=== PATIENT | female | born 2005 | race Caucasian/White ===

== ENCOUNTER 2025-03-02 19:59 | Outpatient (CLI) | payer SELFPAY ==
[2025-03-02 20:24] VITALS: BP 119/71; PULSE 86; TEMP 36.5
--- NOTE | 2025-03-02 21:04 | NUR.NOTE ---
Nursing Note: Pt here until 2100,on EFM for cxs and pushing po hydration. Pt felt 1-2 uterine cxs in this time. Uriel reviewed discharge instructions and follow up plan. Pt to be discharged to home undelivered.
--- NOTE | 2025-03-02 21:08 | W.OBNST ---
Date of service: 03/02/25 Time of Service: 21:09 NST Evaluation Reason for NST Reasons for Nonstress Test: LABOR Gestational Age Gestational Age in Weeks and Days: 34 Weeks and 4Days Test and Monitor Explained Test/Monitor Explained: Test Explained Vital Signs Blood Pressure: 119/71 Pulse: 86 Temperature: 36.5 C Urine Results Urine Protein: Negative Urine Ketones: Negative Urine Glucose: Negative Urine Blood: Negative NST Information Date on Monitor: 03/02/25 Time on Monitor: 19:50 NST Interventions: PO Hydration Contraction Frequency: irregular, Pt has not felt a cx yet as of this time NST Evaluation Patient States Movement: Present FHR Baseline: 135 Variability: Moderate 6-25 bpm Accelerations: 15x15 Decelerations: None NST Results: Reactive Note Ultrasound Done: N/A. NST Note Note: Pt called reporting contractions every 20 minutes for 90 minutes. Contractions were lasting 2-5 minutes per her. She had been seen in clinic earlier today, NST Cat 1, reactive, no contractions. She is feeling baby move. NST here showed 135, moderate variability, + accels, no decels. She did show some contractions on the monitor which she did not feel. These stopped before she left. NST reactive, contractions stopped. Discharged home, call if symptoms return. NST Reviewed and Verified by: Uriel Conde
[2025-03-02 21:11] VITALS: BP 119/71; PULSE 86; TEMP 36.5
== END 2025-03-02 21:16 | disposition home or self-care (01) ==
LOC: BCD 20:01 → OBS 20:01
PROVIDERS: Visit Provider Family Medicine
DX: O47.03 False labor before 37 completed weeks of gestation, third trimester (principal); Z3A.34 34 weeks gestation of pregnancy
CPT/HCPCS: 00123; 59025

== ENCOUNTER 2025-03-30 15:31 | Emergency (ER) | payer MEDICAID, SELFPAY ==
[2025-03-30] VITALS (13 sets, daily range): BP systolic 108–137; BP diastolic 78–97; PULSE 66–92; RESP 16–18; TEMP 36.9; O2SAT 96–98
--- NOTE | 2025-03-30 15:30 | RT.EKG_ITS ---
APPROVED REPORT Exam: Resting ECG Reason for Exam: htn Patient Location: E HR:78 bpm ECG Measurements Heart Rate 78 AXIS OK 151 P 23 QRSd 73 QRS 47 QT 373 T 7 QTc 426 Conclusion Sinus rhythm, rate 78 No interval abnormalities No STEMI T wave inversion III, V1, V2 No priors available for comparison
--- NOTE | 2025-03-30 16:02 | W.ED.GENAD ---
Discharge Plan Disposition Patient Disposition: Home Condition: Stable Discharge Details Clinical Impression: Martinez's palsy Primary Care Provider: CRISTINA SAUL ED Provider: Alaina Harry Home Meds and New Rx's Prescriptions: New prednisone 20 mg tablet 60 mg PO DAILY 6 Days Qty: 18 0RF Rx Instructions: start 03/31/2025 valacyclovir 1 gram tablet 1,000 mg PO TID 7 Days Qty: 21 0RF No Action PNV no.95-ferrous fumarate-FA [] 28 mg iron- 800 mcg tablet 1 tab PO DAILY Discharge Instructions Instructions: Martinez's palsy Additional Instructions: You were seen in the emergency department today for evaluation of facial drooping and alteration in taste that is concerning for Martinez's palsy. In our department you had a full physical examination performed, your fetus was evaluated and found to appear healthy and you are not in labor. I am starting you on 2 medications to treat the most common causes of Martinez's palsy. You will start taking prednisone, 60 mg/day for the next week. You received your first dose in the emergency department today. You will also start taking valacyclovir, this treats HSV or herpes simplex. This is a 3 times per day medication which we will also take for the next week. You need to purchase [id number] eyedrops or eye ointment, and use them to keep the affected eye moist. You may want to tape the eye shut during sleep if it is not closing entirely. Please contact your organ grinder tomorrow to schedule a follow-up visit in their clinic. Please follow-up with your primary care provider in the next few days to discuss this visit and any symptoms that change, worsen, or persist. Thank you for allowing us to be part of your care. Discharge Data Discharge Date/Time-TO BE ENTERED AT DEPARTURE: 03/30/25 19:33 HPI General Mode of arrival: ambulatory. Date/Time Provider Initiated Documentation: 03/30/25 15:35. Limitations to Documentation: no limitations. Information obtained by: patient, family and old records reviewed. HPI Narrative: This is a 19-year-old female patient, G1, P0 at 38 weeks gestation, previously healthy, presenting for evaluation of facial droop. The patient reports that she was getting ready for a clinic visit this morning and around 8:00 noticed that her face did not seem to be moving normally, and she was having numbness of the left tongue and liquids dribbled of the left side of her mouth. She reports no headache, injuries or trauma, states that she has not noted any tick bites. Her blood pressure was slightly higher than is typical for her, though at clinic did not meet preeclamptic range. She is not experiencing any abdominal pain, weakness or numbness of her extremities, bowel or bladder dysfunction. She has not had any vaginal bleeding or discharge, motion has been normal, is not experiencing any contractions. Related Data Home Medications ?Medication ?Instructions ?Recorded ?Confirmed prednisone 20 mg tablet 60 mg (3 x 20 mg) PO DAILY 6 days 03/30/25 #18 tabs vit no.95-ferrous 1 tab PO DAILY 03/30/25 03/30/25 fumarate 28 mg-folic acid 800 mcg tablet () valacyclovir 1 gram tablet 1,000 mg PO TID 1 week #21 tabs 03/30/25 Previous Rx's ?Medication ?Instructions ?Recorded prednisone 20 mg tablet 60 mg (3 x 20 mg) PO DAILY 6 days 03/30/25 #18 tabs valacyclovir 1 gram tablet 1,000 mg PO TID 1 week #21 tabs 03/30/25 Allergies Allergy/AdvReac Type Severity Reaction Status Date / Time No Known Allergies Allergy Verified 03/30/25 15:38 General Stated Complaint: CVA/TIA CYNDI: 2 Exam Narrative Exam Narrative: Gen: awake and alert, in no apparent distress. Appears well nourished. HEENT: PERRL, EOMs full and without nystagmus. External ears and nose normal, mucous membranes moist. Neck: Supple, full range of motion, no observable masses Lungs: No increased work of breathing CV: Heart with regular rate and rhythm. Strong and symmetrical radial pulses. Abdomen: Gravid, fundus palpable well above the umbilicus, no tenderness MSK: No joint swelling, no redness. Full ROM without limitation, no external traumatic findings. Skin: No rashes or lesions to visualized skin. Normal color, warm, and dry. Neuro: The patient has slight left-sided facial droop, with subtle weakness of the left forehead muscles compared to right. 5/5 strength in all muscle groups x4 extremities. No sensory deficits other than the left-sided tongue. Ambulates with steady gait. Psych: Appropriate for situation. Course Vital Signs Vital signs: Vital Signs Temperature 36.9 C 03/30/25 15:35 Pulse 92 H 03/30/25 15:35 Respiratory Rate 16 03/30/25 15:35 Blood Pressure 124/82 03/30/25 15:35 Pulse Oximetry 97 03/30/25 15:35 Temperature 36.9 C 03/30/25 15:35 Temperature Source Oral 03/30/25 15:35 Pulse 92 H 03/30/25 15:35 Respiratory Rate 16 03/30/25 15:35 Blood Pressure 124/82 03/30/25 15:35 Blood Pressure Position Sitting 03/30/25 15:35 Pulse Oximetry 97 03/30/25 15:35 Oxygen Delivery Method Room Air 03/30/25 15:35 Oxygen Flow Rate 0 03/30/25 15:35 Medical Decision Making This is a 19-year-old female patient presenting for evaluation of facial droop and loss of taste sensation. Differential includes but is not limited to intracranial pathology including intracranial hemorrhage, stroke, mass effect, dural venous sinus thrombosis, and considered peripheral nerve issues including Martinez's palsy, HSV, Lyme disease. Regarding the , she does not at this time meet criteria for preeclampsia with her normal blood pressure, and does not have any evidence of loss, early stages of labor, etc. I performed a bedside ultrasound which shows a fetus with appropriate heart rate and movement, and after discussion with PIPELAYER and the radiologist we have elected to proceed with MRI brain and MRV without contrast, and will obtain laboratory studies to include CBC, CMP, magnesium, Lyme testing, Rh testing, and urinalysis with protein to creatinine ratio. -I independently interpreted the laboratory studies, which show no significant leukocytosis, anemia, or thrombocytopenia. The chemistry panel is without evidence of electrolyte abnormality, kidney dysfunction, or liver injury. INR is not elevated, protein to creatinine ratio is not elevated and the patient has had blood pressures that are not above the threshold for preeclampsia concerns. O+ blood type. MRI imaging obtained, reviewed by myself and the radiology report notes no evidence of intracranial hemorrhage, mass effect, thrombosis, or other abnormalities to explain the symptoms. Given this finding, I am most concerned for Martinez's palsy and initiated the patient on valacyclovir and prednisone. She does not require admission to the hospital for management of her and had a reassuring monitoring strip performed down here in the ER. She has follow-up scheduled and will call her eye doctor tomorrow to schedule a visit to ensure that she is protecting her eye adequately, she was counseled on eye lubrication ointment and drops as well as eye taping. At this time, the patient has had a full medical evaluation and is safe for discharge to home. They are hemodynamically stable, ambulatory, and tolerating PO. They are understanding of the follow-up plan and return precautions. They left our facility without incident. Alaina Harry MD [facility] All Active Problems (Updated 03/30/25 @ 19:13 by Alaina Harry MD) Martinez's palsy (Acute) Social History Smoking/Tobacco Use Status: Never Smoking risk assessment performed?: Yes Alcohol Intake: never Drug use: Never Substance use type: does not use Do you feel safe at home: Yes Do you feel safe in your relationship?: Yes POCUS Exam (ED) Limited OB Exam DATE OF EXAM:: 03/30/25 TIME OF EXAM:: 15:52 PROVIDER THAT PERFORMED THE STUDY: Alaina Harry Type of Exam: Pelvic OB Trans Abdominal REASON FOR EXAM: other indication: Eval activity VISUALIZED STRUCTURES: Gestational sac and Uterus PERTINENT FINDINGS/IMPRESSION: cardiac activity and No apparent abnormalities Exam Complete.
[2025-03-30 16:11] LABS: Abs Immature Grans 0.12 10^3/uL (0.0-0.06); HCT 36.3 % (36.0-46.0); HGB 11.9 g/dL (11.2-15.7); Immature Grans % 1.1 %; MCH 28.7 pg (27.0-33.0); MCHC 32.8 % (32.0-36.0); MCV 88 fL (80-95); MPV 12.6 fL (8.0-11.0); Platelet Count 200 10^3/uL (130-400); RBC 4.14 10^6/uL (3.93-5.22); RDW 14.3 % (11.7-14.6); RDW-SD 44.8 fL; WBC 10.85 10^3/uL (4.4-10.8)
--- NOTE | 2025-03-30 16:15 | DI.MRI_ITS ---
Exam(s) MR ANGIO BRAIN WO EXAM: MR ANGIO BRAIN WO CLINICAL HISTORY: bells palsy. TECHNIQUE: Multiplanar multisequence MRV of the brain was performed. COMPARISON: MR MR BRAIN WO from 03/30/2025 FINDINGS: Superior sagittal sinus: Patent.Straight sinus: Patent.Sigmoid sinus: Patent. Transverse sinuses: Patent. Internal jugular veins: Patent. There is no evidence of a venous thrombus. IMPRESSION: Normal MR Venogram. DATA REPOSITORY:
--- NOTE | 2025-03-30 16:15 | DI.MRI_ITS ---
Exam(s) MR BRAIN WO EXAM: MR BRAIN WO CLINICAL HISTORY: bells TECHNIQUE: Multiplanar multisequence MRI of the brain was performed. COMPARISON: No exams were available for comparison FINDINGS: VENTRICLES AND EXTRA AXIAL SPACES: Normal in size and morphology for the patient's age. MIDLINE SHIFT: None. CEREBRAL PARENCHYMA: No focus of restricted diffusion to suggest acute infarct. No space-occupying lesion identified. HEMORRHAGE: No evidence of an acute hemorrhage. BRAINSTEM/CEREBELLUM: Normal. CALVARIUM: Normal. VISUALIZED PARANASAL SINUSES/MASTOIDS:Clear. [place]: Normal flow void. [place]: Unremarkable. OTHER FINDINGS: None. IMPRESSION: 1. Unremarkable MRI of the brain. 2. The preliminary [facility] report was reviewed. DATA REPOSITORY:
[2025-03-30 16:20] LABS: INR 1.0 (0.9-1.1); Prothrombin Time 10.1 sec (9.1-11.1)
[2025-03-30 16:29] LABS: ALT 37 U/L (14-59); AST 22 U/L (15-37); Albumin 2.5 g/dL (3.4-5.0); Alkaline Phosphatase 177 U/L (46-116); Anion Gap 10.5 mmol/L (3-11); BUN 11 mg/dL (7-18); Bilirubin, Total 0.3 mg/dL (0.2-1.0); CO2 21.5 mmol/L (21.0-32.0); Calcium 8.7 mg/dL (8.5-10.1); Chloride 106 mmol/L (98-107); Estimated GFR 126.11 (mL/min/1.73m2); Glucose 98 mg/dL (74-106); Magnesium 1.7 mg/dL (1.8-2.4); Potassium 4.1 mmol/L (3.5-5.1); Sodium 138 mmol/L (136-145); Total Protein 6.2 g/dL (6.4-8.2)
--- NOTE | 2025-03-30 18:20 | DI.[facility]AD_ITS ---
PROCEDURE INFORMATION: Exam: MR Head Without Contrast Exam date and time: 03/30/2025 5:13 PM Age: 19 years old Clinical indication: Other: [place] palsy TECHNIQUE: Imaging protocol: Magnetic resonance imaging of the head without contrast. COMPARISON: No relevant prior studies available. FINDINGS: Brain: No acute infarct. No acute intracranial hemorrhage, mass effect or midline shift. There is a focus of susceptibility artifact in the right cerebellar tentorial region, possibly secondary to remote microhemorrhage. Cerebral ventricles: Normal. No ventriculomegaly. Bones: Unremarkable. Paranasal sinuses: Normal as visualized. No acute sinusitis. Mastoid air cells: Normal as visualized. No mastoid effusion. Orbital cavities: Unremarkable. Soft tissues: Unremarkable. IMPRESSION: No acute findings. Dictated and Authenticated by: Cindy Foreman MD. Orderin [facility]. Govind Foley MD
--- NOTE | 2025-03-30 19:09 | DI.VRAD_ITS ---
PROCEDURE INFORMATION: Exam: MRA Head Without and With Contrast, Venography Exam date and time: 03/30/2025 5:31 PM Age: 19 years old Clinical indication: Other: [place] palsy TECHNIQUE: Imaging protocol: Magnetic resonance angiography of the head without and with contrast. Angiographic sequences such as Haks-zn-rezmav (TOF) or Time-resolved contrast techniques were performed. Exam focused on the veins. COMPARISON: MR BRAIN WO 03/30/2025 5:13 PM FINDINGS: Superior sagittal sinus: Patent. Straight sinus: Patent. Transverse sinuses: Patent. Sigmoid sinuses: Patent. 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 Internal jugular veins: Visualized segment patent. IMPRESSION: No venous thrombus. Dictated and Authenticated by: Desi Barahona MD. Orderin [facility]. Govind Foley MD
[2025-03-30 19:17] LABS: PROTEIN 41.6 mg/dL; Prot/Crea Ur Ratio 0.19
[2025-03-30] MEDS: predniSONE 20 MG TAB 60 MG PO (19:27)
[2025-03-30] MEDS: valACYclovir 1,000 MG TAB 1000 MG PO (19:28)
--- NOTE | 2025-03-30 22:05 | OBCE_ITS ---
Date of service: 03/30/25 Time of Service: 18:00 Assessment and Plan Assessment and plan (1) : Status: Acute Assessment and plan: 19-year-old G1, P0 at 38 4/7 as dated by 6-week ultrasound ([facility] 04/09/2025) ? Rh+/rubella immune/VZV nonimmune/GBS not available at the time of this note ? is complicated by mild persistent asthma, gluten sensitivity, varicella nonimmune, excessive weight gain in and now Martinez's palsy ? status reassuring ? Patient has no labor complaints ? No evidence of preeclampsia - - - - - - - - - - - - - 03/30/2025 ([place]): Patient was seen today in conjunction with [facility]e; they will be out of town until Wednesday of the following week. Dr. Trevino kindly did a warm introduction of myself to the patient. We discussed plan of care for moving forward including an NST with evaluation at the [facility] on Wednesday at 8:30 AM, and consideration of induction of labor next Wednesday or pending patient's condition. Labor precautions as well as preeclampsia precautions were reviewed with the patient, and she was encouraged to have a low threshold for seeking immediate medical evaluation if any concerns arise. - - - - - - - - - - - - - (2) Excessive weight gain during : Status: Acute (3) Maternal varicella, non-immune: Status: Acute (4) Asthma: Status: Chronic (5) Martinez's palsy: Status: Acute Assessment and plan: Diagnosis based on clinical features and results of imaging. See ED notes for management. History of Present Illness Narrative: This is a 19-year-old G1, P0 at 38 4/7 as dated by 6-week ultrasound ([facility] 04/09/2025). She presents to the emergency department having been sent over from her PCPs office ([facility] [place]) for concerns surrounding nausea, vomiting, increased blood pressures, and left-sided facial weakness. Patient states that she woke this morning to find the left side of her face feeling weak. She has been suffering with persistent nausea and intermittent vomiting over the last few days. Was informed by her family practitioner that, while her blood pressures remain in normal range, she has had a modest increase in her blood pressures over the last couple visits.Ms. Anderson has no known history of hypertension and is not currently on blood pressure medication. Her is complicated by mild persistent asthma, gluten sensitivity, varicella nonimmune, excessive weight gain in . She is noted to be Rh+ / Rub I / VZV NI / (GBS not available in current records). She denies leakage of fluid, bleeding, or contractions; she reports good movement. Review of Systems All systems reviewed & are unremarkable except as noted in HPI and below PFSH All Active Problems (Updated 03/30/25 @ 22:21 by Maria G Pringle DO) Asthma (Chronic) Maternal varicella, non-immune (Acute) Excessive weight gain during (Acute) (Acute) Martinez's palsy (Acute) Social History Smoking/Tobacco Use Status: Never Smoking risk assessment performed?: Yes Alcohol Intake: never Drug use: Never Substance use type: does not use Do you feel safe at home: Yes Do you feel safe in your relationship?: Yes Exam Const General: cooperative and healthy appearing Nutritional Appearance: well nourished Orientation: alert and awake HENMT Other: Noted to have left-sided chest pain above the mouth as well as eyes; able to close left eye entirely. Resp Effort & Inspection: normal respiratory effort GI Other: Gravid, nontender Skin General skin exam: no rashes or lesions noted Neuro General: patient alert and patient awake Extrem General: normal to inspection Psych Appearance: well kempt Mental Status: mental status grossly normal Affect: normal affect Results Last Vital Signs Temp 98.4 F 03/30/25 15:35 Pulse 66 03/30/25 19:32 Resp 18 03/30/25 19:32 BP 109/85 03/30/25 19:32 Pulse Ox 98 03/30/25 19:32 Labs 03/30/25 15:48 03/30/25 15:48 Labs: Laboratory Results - last 24 hr 03/30/25 03/30/25 15:48 18:45 WBC 10.85 H RBC 4.14 Hgb 11.9 Hct 36.3 MCV 88 MCH 28.7 MCHC 32.8 RDW 14.3 Plt Count 200 MPV 12.6 H Immature Gran % 1.1 Neutrophils % 78.2 Lymphocytes % 11.1 Monocytes % 8.5 Eosinophils % 0.8 Basophils % 0.3 Nucleated RBC % 0.0 Absolute Neutrophils 8.48 H Absolute Lymphocytes 1.20 Absolute Monocytes 0.92 H Absolute Eosinophils 0.09 Absolute Basophils 0.03 PT 10.1 INR 1.0 Sodium 138 Potassium 4.1 Chloride 106 Carbon Dioxide 21.5 Anion Gap 10.5 BUN 11 Creatinine 0.7 Est GFR (CKD-EPI 2020) 126.11 Glucose 98 Calcium 8.7 Magnesium 1.7 L Total Bilirubin 0.3 AST 22 ALT 37 Alkaline Phosphatase 177 H Total Protein 6.2 L Albumin 2.5 L Ur Random Creatinine 211.92 U Random Total Protein 41.6 U [place] Prot/Creat Ratio 0.19 ABO/Rh O Positive Imaging Additional studies: Brain MRI and MRA find no evidence of tissue defects or vascular concerns Imaging Studies: FHT: Category 1 [place]: Rare and intermittent; uterine irritability
[2025-04-02 11:31] LABS: Lyme Ab w Rflx to Lyme Confirm Negative (Negative)
[2025-04-04 21:50] LABS: B. miyamotoi PCR Negative (Negative); Babesia divergens/MO-1 Negative (Negative); Ehrlichia muris eauclairensis Negative (Negative)
== END 2025-03-30 19:33 | disposition home or self-care (01) ==
PROVIDERS: Obstetrics & Gynecology; Emergency Provider Emergency Medicine; PCP Nurse Practitioner Family
DX: O99.353 Diseases of the nervous system complicating pregnancy, third trimester; G51.0 Bell's palsy; Z3A.38 38 weeks gestation of pregnancy
CPT/HCPCS: 70544; 76815; 80053; 86900; 86901; 87798; 93005; 99285; 70551; 82565; 83735; 84156; 85025; 85610; 86618; 93010; J7512

== ENCOUNTER 2025-03-31 10:00 | Outpatient (CLI) | payer MEDICAID, SELFPAY ==
[2025-03-31 10:45] VITALS: BP 124/69; PULSE 68; TEMP 36.8
[2025-03-31 10:50] VITALS: BP 124/69; PULSE 68
[2025-03-31 11:08] LABS: Abs Immature Grans 0.22 10^3/uL (0.0-0.06); HCT 37.4 % (36.0-46.0); HGB 12.1 g/dL (11.2-15.7); Immature Grans % 1.4 %; MCH 28.9 pg (27.0-33.0); MCHC 32.4 % (32.0-36.0); MCV 89 fL (80-95); MPV 12.3 fL (8.0-11.0); Platelet Count 210 10^3/uL (130-400); RBC 4.19 10^6/uL (3.93-5.22); RDW 14.3 % (11.7-14.6); RDW-SD 45.4 fL; WBC 15.18 10^3/uL (4.4-10.8)
[2025-03-31 11:22] LABS: ALT 43 U/L (14-59); AST 22 U/L (15-37); Albumin 2.4 g/dL (3.4-5.0); Alkaline Phosphatase 175 U/L (46-116); Anion Gap 13.0 mmol/L (3-11); BUN 14 mg/dL (7-18); Bilirubin, Total 0.3 mg/dL (0.2-1.0); CO2 21.0 mmol/L (21.0-32.0); Calcium 9.3 mg/dL (8.5-10.1); Chloride 106 mmol/L (98-107); Estimated GFR 107.44 (mL/min/1.73m2); Glucose 112 mg/dL (74-106); Potassium 4.0 mmol/L (3.5-5.1); Sodium 140 mmol/L (136-145); Total Protein 6.0 g/dL (6.4-8.2)
[2025-03-31 11:33] VITALS: BP 124/64; PULSE 64
[2025-03-31 11:40] VITALS: BP 124/64; PULSE 64
[2025-03-31 12:13] LABS: PROTEIN 90.4 mg/dL; Prot/Crea Ur Ratio 0.23
--- NOTE | 2025-03-31 13:06 | W.OBNST ---
Date of service: 03/31/25 Time of Service: 13:06 NST Evaluation Reason for NST Reasons for Nonstress Test: OTHER, SEE COMMENT Reason for NST Other: Concerns for possible elevated blood pressure Gestational Age Gestational Age in Weeks and Days: 38 Weeks and 5Days Test and Monitor Explained Test/Monitor Explained: Test Explained, Monitor Explained and Patient Verbalized Understanding Vital Signs Blood Pressure: 124/64 Pulse: 64 Temperature: 98.2 F NST Information Date on Monitor: 03/31/25 Time on Monitor: 10:47 Date off Monitor: 03/31/25 NST Interventions: PO Hydration Contraction Frequency: 1-6 NST Evaluation Patient States Movement: Present FHR Baseline: 135 Variability: Moderate 6-25 bpm Accelerations: 15x15 NST Results: Reactive Note Ultrasound Done: N/A. NST Note Note: reactive and reassuring NST Reviewed and Verified by: Maria G Pringle
[2025-03-31 13:07] VITALS: BP 124/64; PULSE 64; TEMP 36.8
--- NOTE | 2025-03-31 13:07 | PGE_ITS ---
Date of Service Date of service: 03/31/25 Time of Service: 13:07 Assessment and Plan Assessment and plan (1) : Status: Acute Assessment and plan: 19-year-old at 38 and 5 is dated by 6-week ultrasound ([facility] 04/09/2025) ? Rh+ / Rub I / VZV NI / GBS unknown (collected, but info not available at the time of note) ? complicated by mild persistent asthma, gluten sensitivity, varicella nonimmune, excessive weight gain in , Martinez's palsy ? status reassuring - - - - - - - - - - - - - - - - - - 03/30/2025 ([place]): ED visit for assessment of blood pressures and diagnosis of Martinez's Palsy. Patient was seen today in conjunction with [facility]; they will be out of town until Wednesday of the following week. Dr. Trevino kindly did a warm introduction of myself to the patient. We discussed plan of care for moving forward including an NST with evaluation at the [facility] clinic on Wednesday at 8:30 AM, and consideration of induction of labor next Wednesday or pending patient's condition. Labor precautions as well as preeclampsia precautions were reviewed with the patient, and she was encouraged to have a low threshold for seeking immediate medical evaluation if any concerns arise. 03/31/2025 ([place]): Patient presents for concerns surrounding possibly elevated blood pressures at home (130s over 80s to 90s). Assessment, today, is stable from prior. Labs are still within normal range and stable from the day before. status is reassuring and overall clinical presentation is sukhdeep ropriate for gestational age; I do not detect evidence of preeclampsia. Serial blood pressures here are within normal range, and cuff is noted to be appropriately sized. Patient has an appointment with [facility] scheduled for 8:30 AM on Wednesday. We once again reviewed labor and preeclampsia precautions, and she was encouraged to have a low threshold for seeking immediate medical evaluation if symptoms worsen or progress. SVE, today, is 1/thick/high/medium/posterior; cephalic. Membranes were swept. Assuming clinical status remains stable, plan is for assessment on Wednesday and, assuming reassuring evaluation at that time, induction of labor with [facility] [place] to be scheduled for Wednesday or . - - - - - - - - - - - - - Subjective Subjective Interval history since last seen: 19-year-old at 38 and 5 is dated by 6-week ultrasound ([facility] 04/09/2025) called this morning with concerns surrounding possibly elevated blood pressures at home. Patient reported blood pressures in the 130s over 80s to 90s; she was encouraged to come to triage for evaluation. On presentation to triage, she is accompanied by her mother. Ms. Anderson appears stable from yesterday. Blood pressures are noted to be ranging in the 120s over 60s to 70s. Her symptoms are unchanged from baseline (persistent nausea; no other signs or symptoms of preeclampsia). Patient reports intermittent contractions, and reports good movement. She denies any bleeding or leakage. Exam Narrative Exam Narrative: General: Well-nourished female in no immediate distress HEENT: Modest left-sided facial droop, improved from prior Pulm: No overt respiratory distress Abdomen: Gravid, nontender Extremities: +1, nonpitting edema noted equally bilaterally Psych: Appropriate, cooperative : 1/thick/high/medium/posterior; cephalic. Membranes swept. FHT: Reactive and reassuring; category 1 [place]: Irregular Objective Last Vital Signs Pulse 64 03/31/25 11:33 BP 124/64 03/31/25 11:33 Laboratory Results - last 24 hr 03/31/25 03/31/25 03/31/25 10:05 10:45 10:57 WBC Cancelled 15.18 H RBC Cancelled 4.19 Hgb Cancelled 12.1 Hct Cancelled 37.4 MCV Cancelled 89 MCH Cancelled 28.9 MCHC Cancelled 32.4 RDW Cancelled 14.3 Plt Count Cancelled 210 MPV Cancelled 12.3 H Immature Gran % 1.4 Neutrophils % 81.7 Lymphocytes % 9.6 Monocytes % 6.8 Eosinophils % 0.2 Basophils % 0.3 Nucleated RBC % 0.0 Absolute Neutrophils 12.40 H Absolute Lymphocytes 1.46 Absolute Monocytes 1.03 H Absolute Eosinophils 0.03 Absolute Basophils 0.05 Sodium 140 Potassium 4.0 Chloride 106 Carbon Dioxide 21.0 Anion Gap 13.0 H BUN 14 Creatinine 0.8 Est GFR (CKD-EPI 2020) 107.44 Glucose 112 H Calcium 9.3 Total Bilirubin 0.3 AST 22 ALT 43 Alkaline Phosphatase 175 H Total Protein 6.0 L Albumin 2.4 L Ur Random Creatinine 389.56 U Random Total Protein 90.4 U [place] Prot/Creat Ratio 0.23 Time Spent with Patient Time Spent with Patient: 35-49 minutes Time was spent: preparing to see the patient(eg.review tests), obtaining and/or reviewing separately otained hiistory, ordering medications,tests, procedures, referring, communicating with other health lead care manager, indepentently interpreting results, counseling the patient and care coordination
== END 2025-03-31 13:05 ==
LOC: BCD 10:04 → OBS 10:05
PROVIDERS: PCP Nurse Practitioner Family; Visit Provider Obstetrics & Gynecology
DX: Z34.93 Encounter for supervision of normal pregnancy, unspecified, third trimester (principal); Z3A.38 38 weeks gestation of pregnancy
CPT/HCPCS: 36415; 80053; 85027; 59025; 82565; 84156; 85025

== ENCOUNTER 2025-04-01 09:19 | Inpatient (IN) | payer MEDICAID, SELFPAY ==
[2025-03-31 23:08] VITALS: BP 121/56; PULSE 55; RESP 18; TEMP 36.8
[2025-03-31 23:11] VITALS: BP 122/62; BP 122/64; PULSE 54; PULSE 74; RESP 18; TEMP 36.8
--- NOTE | 2025-03-31 23:26 | W.PM.OBHPL1 ---
Date of service: 03/31/25 Time of Service: 23:26 Assessment and Plan Assessment and plan (1) Martinez's palsy: Status: Acute (2) Maternal varicella, non-immune: Status: Acute (3) Excessive weight gain during : Status: Acute (4) : Status: Acute Assessment and plan: 19-year-old at 38 and 5 is dated by 6-week ultrasound ([facility] 04/09/2025) ? Rh+ / Rub I / VZV NI / GBS negative (as of 03/13) ? complicated by mild persistent asthma, gluten sensitivity, varicella nonimmune, excessive weight gain in , Martinez's palsy ? status reassuring - - - - - - - - - - - - - - - - - - 03/30/2025 ([place]): ED visit for assessment of blood pressures and diagnosis of Martinez's Palsy. Patient was seen today in conjunction with Nur[facility] Agee; they will be out of town until Wednesday of the following week. Dr. Trevino kindly did a warm introduction of myself to the patient. We discussed plan of care for moving forward including an NST with evaluation at the [facility] on Wednesday at 8:30 AM, and consideration of induction of labor next Wednesday or pending patient's condition. Labor precautions as well as preeclampsia precautions were reviewed with the patient, and she was encouraged to have a low threshold for seeking immediate medical evaluation if any concerns arise. 03/31/2025 ([place]): Patient presents for concerns surrounding possibly elevated blood pressures at home (130s over 80s to 90s). Assessment, today, is stable from prior. Labs are still within normal range and stable from the day before. status is reassuring and overall clinical presentation is appropriate for gestational age; I do not detect evidence of preeclampsia. Serial blood pressures here are within normal range, and cuff is noted to be appropriately sized. Patient has an appointment with Nurys Agee scheduled for 8:30 AM on Wednesday. We once again reviewed labor and preeclampsia precautions, and she was encouraged to have a low threshold for seeking immediate medical evaluation if symptoms worsen or progress. SVE, today, is 1/thick/high/medium/posterior; cephalic. Membranes were swept. Assuming clinical status remains stable, plan is for assessment on Wednesday and, assuming reassuring evaluation at that time, induction of labor with Nurys Agee to be scheduled for Wednesday or . 03/31/2025 ([place]uroophelia): Patient returned for additional evaluation citing elevated blood pressures at home. She brings a blood pressure log with her with the above mentioned values; she is noted to have a few elevations. Her mother has been taking the blood pressures manually and she is medically trained (SUSIE). Patient also reports a persistent headache over the course of the day; albeit, she has not tried anything for it, yet, and she denies any other associated symptoms with it (no visual changes, light headedness, etc). We discussed repeating her labs and monitoring her overnight. We will do serial blood pressures and confirm with manual readings as well. Ms. Anderson will be 39 0/7 in 2 days; we will have a low threshold for proceeding with IOL, especially this being her third visit in two days as she has an elevated sense of concern. Ms. Anderson is also noted to have had a modestly elevated white count this morning and her baby's baseline is somewhat high (160, overall reassuring); however, she initiated a steroid yesterday for her Martinez's Palsy. We will do continuous FHT monitoring for now and watch closely for any concerns for infection. - - - - - - - - - - - - - OB-HPI Labor/Delivery History of Present Illness Reason for Visit: headache Chief Complaint: Signs/Symptoms Gestational HTN , Associated Signs and Symptoms of GestationalHTN: Elevated blood pressures noted at home. Informed Consent Informed Consent: Risk,Benefits,Alternatives Discussed Review of Systems All systems reviewed & are unremarkable except as noted in HPI and below PFSH All Active Problems (Updated 03/30/25 @ 22:21 by Maria G Pringle DO) Asthma (Chronic) Maternal varicella, non-immune (Acute) Excessive weight gain during (Acute) (Acute) Martinez's palsy (Acute) Social History Smoking/Tobacco Use Status: Never Smoking risk assessment performed?: Yes Alcohol Intake: never Drug use: Never Substance use type: does not use Do you feel safe at home: Yes Do you feel safe in your relationship?: Yes Meds Allergies and Home Medications Allergies Allergy/AdvReac Type Severity Reaction Status Date / Time No Known Allergies Allergy Verified 03/30/25 15:38 Home Medications ?Medication ?Instructions ?Recorded ?Confirmed ?Type prednisone 20 mg tablet 60 mg (3 x 20 mg) PO DAILY 6 days 03/30/25 Rx #18 tabs vit no.95-ferrous 1 tab PO DAILY 03/30/25 03/30/25 History fumarate 28 mg-folic acid 800 mcg tablet () valacyclovir 1 gram tablet 1,000 mg PO TID 1 week #21 tabs 03/30/25 Rx Exam Physical Exam Vital signs: Pulse BP 54 L 122/62 03/31/25 23:11 03/31/25 23:11 HOME MONITORIN: 130 / 78 1715: 138 / 90 1900: 130 / 96 2000: 132 / 92 2100: 140 / 100 Constitutional Constitutional: no acute distress Detailed Labor and Delivery Exam Valenzuela Score: Cervical Points Exam 0 1 2 3 Dilation Closed 1-2cm 3-4 cm 5-6cm Effacement 0-30% 40-50% 60-70% 80% Consistency Firm Medium Soft Station -3 -2 -1,0 +1,+2 Position Posterior Mid Anterior VALENZUELA Score(Cervical Ripeness Score): 3 Amniotic Membrane Status: Intact Contraction Frequency(min): irregular Fetus A Heart Rate Baseline: 160 Monitor Accelerations: Present (Some prolonged) Monitor Decelerations: None Variability: Moderate (6-25 BPM) Presentation: Cephalic Categories: Category I Est. Weight: 7 lb 8 oz Detailed HEENT Exam Comments: Modestly swollen appearance throughout her face. Still has modest left-sided facial droop, though improved from yesterday. Detailed Respiratory Exam Comments: CTAB; no evidence of respiratory distress Detail Cardiovascular Exam Comments: RRR; no overt mumurs or arrhythmias Detailed Abdominal Exam Comments: Gravid, non-tender. No palpable contractions. No RUQ tenderness Detailed Exam Comments: Declines exam Detailed Extremities Exam Comments: +1 non-pitting edema noted equally bilaterally. Patella and Brachial reflexes are appropriate at 2+/4 without clonus DetailedPsychiatric Exam Comments: Appropriate and congruent mood and affect; cooperative Results Results Group Beta Strep: Negative (03/13/25) Blood Type: O+ Rubella Status: Immune Varicella Immunity: Nonimmune Risk Assessment Risks Reviewed Risks Reviewed Upon Admission: Yes
[2025-03-31 23:49] LABS: ALT 42 U/L (14-59); AST 21 U/L (15-37); Albumin 2.4 g/dL (3.4-5.0); Alkaline Phosphatase 167 U/L (46-116); Anion Gap 9.6 mmol/L (3-11); BUN 14 mg/dL (7-18); Bilirubin, Total 0.2 mg/dL (0.2-1.0); CO2 21.4 mmol/L (21.0-32.0); Calcium 9.4 mg/dL (8.5-10.1); Chloride 109 mmol/L (98-107); Estimated GFR 130.88 (mL/min/1.73m2); Glucose 100 mg/dL (74-106); Potassium 4.0 mmol/L (3.5-5.1); Sodium 140 mmol/L (136-145); Total Protein 5.8 g/dL (6.4-8.2)
[2025-04-01] VITALS (10 sets, daily range): BP systolic 112–138; BP diastolic 56–77; PULSE 55–88; RESP 18–22; TEMP 35.8–37
[2025-04-01 00:23] LABS: PROTEIN 14.8 mg/dL; Prot/Crea Ur Ratio 0.82
[2025-04-01 00:25] LABS: HCT 34.4 % (36.0-46.0); HGB 11.2 g/dL (11.2-15.7); MCH 29.2 pg (27.0-33.0); MCHC 32.6 % (32.0-36.0); MCV 90 fL (80-95); MPV 12.7 fL (8.0-11.0); Platelet Count 188 10^3/uL (130-400); RBC 3.84 10^6/uL (3.93-5.22); RDW 14.4 % (11.7-14.6); RDW-SD 46.2 fL; WBC 13.95 10^3/uL (4.4-10.8)
[2025-04-01] MEDS: Acetaminophen 325 MG TAB 650 MG PO (08:29)
[2025-04-01] MEDS: Prenatal Multivitamin w/CA,FE TAB 1 TAB PO (08:30)
[2025-04-01] MEDS: valACYclovir 1,000 MG TAB 1000 MG PO ×2 (08:30→18:00)
[2025-04-01] MEDS: predniSONE 20 MG TAB 60 MG PO (08:30)
--- NOTE | 2025-04-01 08:42 | PGE_ITS ---
Date of Service Date of service: 04/01/25 Time of Service: 08:42 Assessment and Plan Assessment and plan (1) : Status: Acute Assessment and plan: 19-year-old at 38 6/7 as dated by 6-wk US ([facility] 04/09/2025) ? Rh+ / Rub I / VZV NI / GBS negative (as of 03/13) ? complicated by mild persistent asthma, gluten sensitivity, varicella nonimmune, excessive weight gain in , Martinez's palsy, and now proteinuria ? To be offered VZV vaccine following delivery ? Will continue 60 mg PO Prednisone daily x 6 days (03/30 thru 04/04) and 1000 mg PO Valtrex TID x 7 days for Martinez's Palsy - - - - - - - - - - - - - - 04/01/2025 ([place]): Patient is joined by the father of the baby this morning. We had a long discussion regarding management moving forward. Patient is noted to be 39 weeks as of tomorrow. She expresses notable concern over the increase in her blood pressures from baseline. She notes the intermittent headaches and nausea that have developed over the last week and endorses a corresponding decrease in movement over the same time period. She is noted to have a pronounced development of proteinuria over the course of her urine protein creatinine's since the and relative to the start of her , her ALT and AST are modestly increased. The baby's status is overall reassuring but has not been without remarkable moments as noted above. We had a long discussion regarding induction of labor and how this process can take multiple days. Though she is 38 weeks and 6 days as of today, she will be 39 weeks tomorrow, and well her symptoms in isolation do not warrant a specific diagnosis for induction, the collection of them together creates enough suspicion for a developing underlying pathology but I feel induction today is reasonable. Patient verbalizes understanding of all the above and expresses notable interest in pursuing an induction. She understands that her regular providers are not currently available, and that this induction would be undertaken by our group on behalf of her normal providers. We will plan for a Cytotec induction following breakfast for suspicion of gestational hypertension vs pre-eclampsia without severe features (based on home blood pressure monitoring and delta change in systolic blood pressure from the beginning of her pregnancyin the setting of newfound proteinuria) and decreased movement. Routine induction orders placed; patient to continue her oral steroid and Valacyclovir for her Martinez's palsy. Of note, the patient and I did discuss dual- agent induction (such as cytotec with a cervical turner vs cook catheter); for now, we will work with vaginal and/or PO cytotec. - - - - - - - - - - - - - - (2) Excessive weight gain during : Status: Acute Assessment and plan: - TWG 57.3 lbs - 28 wk 1hr OGTT 114 - No third trimester US available; EFW approximately 7.5 lbs on Sly's - Shoulder precautions (3) Maternal varicella, non-immune: Status: Acute Assessment and plan: To be offered varicella vaccine following delivery (4) Martinez's palsy: Status: Acute Assessment and plan: - Diagnosed 03/30; MRI and MRA w/o contrast do not find evidence of intracranial pathology - 60 mg Prednisone daily x 6 days; to be continued thru 04/04 - 1000 mg Valtrex TID x 7 days; to be continued thru 04/05 (5) Proteinuria: Status: Acute Assessment and plan: - Uprot/Cr: (03/30) 0.19, (03/31 AM) 0.28, (03/31 PM) 0.82 - Cr: (03/30) 0.7, (03/31 AM) 0.8, (03/31 PM) 0.6 - Newfound proteinuria based on elevated protein:creatinine ratio since 03/30. Creatinine has remained stable (6) Asthma: Status: Chronic Assessment and plan: - Well controlled on Breo 100-25 1 puff BID; ordered Subjective Subjective Interval history since last seen: 19-year-old at 38 6/7 as dated by 6-week ultrasound (JOSE FRANCISCO: 04/09/2025) Hospital day 1 for extended monitoring of blood pressures; patient reports blood pressures have been notably elevated at home. She has been wrestling with intermittent nausea as well as headaches in the last week. Today, she reports that her headache from last night had improved with Tylenol but is back this morning. She denies any visual changes. She denies any current nausea. She is not resting in bed and in good spirits. This morning, Ms. Anderson states that the baby's movements have not been as prominent as usual in the last week. She denies any history of chronic hypertension, and reiterates that her blood pressures are elevated from baseline from her. A review of her records does show that her systolic blood pressures at the beginning of her were running in the 100's, and overnight they were fairly consistently in the 120s to 130s. Exam Narrative Exam Narrative: General: Well-nourished female in no immediate distress HEENT: Very mild left-sided facial droop much improved from prior (likely thanks to steroids) Pulmonary: No respiratory distress Abdomen: Gravid, nontender Extremities: +1, nonpitting edema noted equally bilaterally : SVE 1/thick/high/medium/posterior; membranes swept. Cephalic presentation. FHT: Overall reactive and reassuring; last night, baby initially presented borderline tachycardic with arguably moderate to marked variability, which settled over time. She was also noted to have a subtle deceleration at 0812 this morning; however, the heart tones are otherwise category 1 and very reassuring. [place]: Irregular fluctuations suggestive of uterine irritability; patient reports that she is feeling some of the contractions though they are mild Objective Last Vital Signs Temp 97.2 F L 04/01/25 08:07 Pulse 60 04/01/25 08:07 Resp 22 04/01/25 08:07 BP 128/69 04/01/25 08:07 Laboratory Results - last 24 hr 03/31/25 04/01/25 23:23 00:04 WBC 13.95 H RBC 3.84 L Hgb 11.2 Hct 34.4 L MCV 90 MCH 29.2 MCHC 32.6 RDW 14.4 Plt Count 188 MPV 12.7 H Sodium 140 Potassium 4.0 Chloride 109 H Carbon Dioxide 21.4 Anion Gap 9.6 BUN 14 Creatinine 0.6 Est GFR (CKD-EPI 2020) 130.88 Glucose 100 Calcium 9.4 Total Bilirubin 0.2 AST 21 ALT 42 Alkaline Phosphatase 167 H Total Protein 5.8 L Albumin 2.4 L Ur Random Creatinine 17.87 U Random Total Protein 14.8 U [place] Prot/Creat Ratio 0.82 ABO/Rh O Positive Antibody Screen NEGATIVE WBC: (03/30) 10.85, (03/31 AM) 15.18, (03/31 PM) 13.95 Hgb: (03/30) 11.9, (03/31) 12.1, (03/31 PM) 11.2 Plts: (03/30) 200, (03/31) 210, (03/31) 188 Cr: (03/30) 0.7, (03/31 AM) 0.8, (03/31 PM) 0.6 AST: (03/30) 22, (03/31) 22, (03/31) 21 ALT: (03/30) 37, (03/31) 43, (03/31) 42 Uprot/Cr: (03/30) 0.19, (03/31) 0.28, (03/31 PM) 0.82 Time Spent with Patient Time Spent with Patient: 25-34 minutes Time was spent: preparing to see the patient(eg.review tests), obtaining and/or reviewing separately otained hiistory, ordering medications,tests, procedures, indepentently interpreting results, counseling the patient and care coordination
[2025-04-01] MEDS: miSOPROStol 25 MCG TAB PO (09:58)
--- NOTE | 2025-04-01 16:30 | PGE_ITS ---
Date of Service Date of service: 04/01/25 Time of Service: 16:31 Assessment and Plan Assessment and plan (1) : Status: Acute Assessment and plan: 19 yo at 38 6/7 as dated by 6 wk US undergoing IOL for suspected gHTN ? Rh+ / Rub I / VZV NI / GBS negative (as of 03/13) ? complicated by mild persistent asthma, gluten sensitivity, varicella nonimmune, excessive weight gain in , Martinez's palsy, and now proteinuria, elevated BP's from patient's baseline (but still WNL) ? status reassuring ? Pain management via nitrous and ambulation for now ? Has received one dose of 25 mcg of vaginal cytotec ? Cook catheter (30 cc's sterile saline in each balloon) placed 04/01 at 1630. Anticipate initiating Pitocin to a max of 6 mU's starting at 1930. Titrate up once Cook catheter comes out (2) Excessive weight gain during : Status: Acute (3) Maternal varicella, non-immune: Status: Acute (4) Proteinuria: Status: Acute Subjective Subjective Interval history since last seen: 19 yo at 38 6/7 as dated by 6 wk US undergoing IOL for suspected gHTN. Membranes intact. and status is reassuring. She has received 1 dose of 25 mcg of vaginal cytotec which did induce some uterine irritability; she has since been deena too much for a subsequent dose. Patient was counsled on the risks and benefits of placement of a Cook catheter, and she wishes to proceed. Exam Narrative Exam Narrative: general: well-nourished female; comfortable HEENT: Stable pulm: no overt resp distress abd: gravid, non-tender Ext: +1 edema noted equally bilaterally SVE: 1/th/high/-3/medium/posterior; cephalic FHT: Cat 1 [place]: q1-2; patient reports feeling them intermittently Objective Last Vital Signs Temp 97.2 F L 04/01/25 08:07 Pulse 81 04/01/25 16:05 Resp 22 04/01/25 08:07 BP 138/64 04/01/25 16:05 Laboratory Results - last 24 hr 03/31/25 04/01/25 23:23 00:04 WBC 13.95 H RBC 3.84 L Hgb 11.2 Hct 34.4 L MCV 90 MCH 29.2 MCHC 32.6 RDW 14.4 Plt Count 188 MPV 12.7 H Sodium 140 Potassium 4.0 Chloride 109 H Carbon Dioxide 21.4 Anion Gap 9.6 BUN 14 Creatinine 0.6 Est GFR (CKD-EPI 2020) 130.88 Glucose 100 Calcium 9.4 Total Bilirubin 0.2 AST 21 ALT 42 Alkaline Phosphatase 167 H Total Protein 5.8 L Albumin 2.4 L Ur Random Creatinine 17.87 U Random Total Protein 14.8 U [place] Prot/Creat Ratio 0.82 ABO/Rh O Positive Antibody Screen NEGATIVE Time Spent with Patient Time Spent with Patient: 35-49 minutes Time was spent: preparing to see the patient(eg.review tests), obtaining and/or reviewing separately otained hiistory, ordering medications,tests, procedures, referring, communicating with other health resident care coordinator, indepentently interpreting results and counseling the patient
[2025-04-01] MEDS: Ondansetron O.D.T. 4 MG TABEF PO (17:05)
--- NOTE | 2025-04-01 17:58 | W.PM.PROGNOT ---
Date of Service Date of service: 04/01/25 Time of Service: 17:58 Assessment and Plan Assessment and plan (1) : Status: Acute Assessment and plan: 19 yo at 38 6/7 as dated by 6 wk US undergoing IOL for suspected gHTN ? Rh+ / Rub I / VZV NI / GBS negative (as of 03/13) ? complicated by mild persistent asthma, gluten sensitivity, varicella nonimmune, excessive weight gain in , Martinez's palsy, and now proteinuria, elevated BP's from patient's baseline (but still WNL) ? status reassuring ? Pain management via nitrous and ambulation for now ? Has received one dose of 25 mcg of vaginal cytotec ? Cook catheter (25 cc's sterile saline in each balloon) placed 04/01 at 1630. Anticipate initiating Pitocin to a max of 6 mU's starting at 2000. Titrate up once Cook catheter comes out (2) Excessive weight gain during : Status: Acute (3) Maternal varicella, non-immune: Status: Acute (4) Proteinuria: Status: Acute (5) Martinez's palsy: Status: Acute (6) Asthma: Status: Chronic Subjective Subjective Interval history since last seen: 19 yo at 38 6/7 as dated by 6 wk US undergoing IOL for suspected gHTN. Membranes intact. and status is reassuring. She has received 1 dose of 25 mcg of vaginal cytotec which did induce some uterine irritability; she has since been deena too much for a subsequent dose. Currently has a Cook catheter in place, but having a difficult time tolerating it. Fluid taken down to 25 cc's in each balloon, and with this, patient tolerating it much better. Objective Last Vital Signs Temp 97.2 F L 04/01/25 08:07 Pulse 81 04/01/25 16:05 Resp 22 04/01/25 08:07 BP 138/64 04/01/25 16:05 Laboratory Results - last 24 hr 03/31/25 04/01/25 23:23 00:04 WBC 13.95 H RBC 3.84 L Hgb 11.2 Hct 34.4 L MCV 90 MCH 29.2 MCHC 32.6 RDW 14.4 Plt Count 188 MPV 12.7 H Sodium 140 Potassium 4.0 Chloride 109 H Carbon Dioxide 21.4 Anion Gap 9.6 BUN 14 Creatinine 0.6 Est GFR (CKD-EPI 2020) 130.88 Glucose 100 Calcium 9.4 Total Bilirubin 0.2 AST 21 ALT 42 Alkaline Phosphatase 167 H Total Protein 5.8 L Albumin 2.4 L Ur Random Creatinine 17.87 U Random Total Protein 14.8 U [place] Prot/Creat Ratio 0.82 ABO/Rh O Positive Antibody Screen NEGATIVE Time Spent with Patient Time Spent with Patient: 25-34 minutes Time was spent: preparing to see the patient(eg.review tests), obtaining and/or reviewing separately otained hiistory, ordering medications,tests, procedures, referring, communicating with other health lawn care professional, indepentently interpreting results and counseling the patient
[2025-04-01] MEDS: Ondansetron O.D.T. 4 MG TABEF (18:03)
--- NOTE | 2025-04-01 21:04 | PGE_ITS ---
Date of Service Date of service: 04/01/25 Time of Service: 21:04 Assessment and Plan Assessment and plan (1) : Status: Acute Assessment and plan: 19 yo at 38 6/7 as dated by 6 wk US undergoing IOL for suspected gHTN ? Rh+ / Rub I / VZV NI / GBS negative (as of 03/13) ? complicated by mild persistent asthma, gluten sensitivity, varicella nonimmune, excessive weight gain in , Martinez's palsy, and now proteinuria, elevated BP's from patient's baseline (but still WNL) ? status reassuring ? Pain management via nitrous and ambulation for now ? Has received one dose of 25 mcg of vaginal cytotec ? Cook catheter (30 cc's sterile saline in each balloon) placed 04/01 at 1630. Anticipate initiating Pitocin to a max of 6 mU's starting at 1930. Titrate up once Cook catheter comes out - - - - - - - - - - - - 04/01/2025 PM ([place]): We discussed plans to initiate Pitocin as outlined above and the patient is agreeable to this plan. Discussed with nurses plan to titrate Pitocin to adequate contractions. Blood pressures remain stable in the 110s to 130s over 60s to 70s. - - - - - - - - - - - - (2) Excessive weight gain during : Status: Acute Assessment and plan: - TWG 57.3 lbs - 28 wk 1hr OGTT 114 - No third trimester US available; EFW approximately 7.5 lbs on Sly's - Shoulder precautions (3) Maternal varicella, non-immune: Status: Acute Assessment and plan: To be offered varicella vaccine following delivery (4) Proteinuria: Status: Acute Assessment and plan: - Uprot/Cr: (03/30) 0.19, (03/31 AM) 0.28, (03/31 PM) 0.82 - Cr: (03/30) 0.7, (03/31 AM) 0.8, (03/31 PM) 0.6 - Newfound proteinuria based on elevated protein:creatinine ratio since 03/30. Creatinine has remained stable (5) Martinez's palsy: Status: Acute Assessment and plan: - Diagnosed 03/30; MRI and MRA w/o contrast do not find evidence of intracranial pathology - 60 mg Prednisone daily x 6 days; to be continued thru 04/04 - 1000 mg Valtrex TID x 7 days; to be continued thru 04/05 (6) Asthma: Status: Chronic Assessment and plan: - Well controlled on Breo 100-25 1 puff BID; ordered Subjective Subjective Interval history since last seen: 19-year-old G1, P0 at 38 and 6 is dated by 6-week ultrasound ([facility]: 04/09/2025) undergoing induction of labor for suspected gestational hypertension. She is found resting in her bed comfortably eating nachos with her and is noted to be in good spirits. She is tolerating the Cook catheter well at 25 cc in each balloon. She has been ambulating regularly and recently took a shower. Exam Narrative Exam Narrative: General: Well-nourished female in no immediate distress HEENT: Stable from prior Pulmonary: No overt respiratory distress Abdomen: Gravid, nontender Psych: Congruent, appropriate, cooperative FHT: Category 1 [place]: Intermittent uterine irritability noted Objective Last Vital Signs Temp 98.4 F 04/01/25 18:06 Pulse 88 04/01/25 20:55 Resp 22 04/01/25 08:07 BP 115/62 04/01/25 20:55 Laboratory Results - last 24 hr 03/31/25 04/01/25 23:23 00:04 WBC 13.95 H RBC 3.84 L Hgb 11.2 Hct 34.4 L MCV 90 MCH 29.2 MCHC 32.6 RDW 14.4 Plt Count 188 MPV 12.7 H Sodium 140 Potassium 4.0 Chloride 109 H Carbon Dioxide 21.4 Anion Gap 9.6 BUN 14 Creatinine 0.6 Est GFR (CKD-EPI 2020) 130.88 Glucose 100 Calcium 9.4 Total Bilirubin 0.2 AST 21 ALT 42 Alkaline Phosphatase 167 H Total Protein 5.8 L Albumin 2.4 L Ur Random Creatinine 17.87 U Random Total Protein 14.8 U [place] Prot/Creat Ratio 0.82 ABO/Rh O Positive Antibody Screen NEGATIVE Time Spent with Patient Time Spent with Patient: 25-34 minutes Time was spent: preparing to see the patient(eg.review tests), obtaining and/or reviewing separately otained hiistory, ordering medications,tests, procedures, indepentently interpreting results, counseling the patient and care coordination
[2025-04-01] MEDS: Normal Saline Flush 10 ML SYR IVP (21:19)
[2025-04-01] MEDS: Lactated Ringers 1,000 ML 200 ML IV (21:20)
[2025-04-01] MEDS: Oxytocin/Normal Saline 30 UNITS/500 ML BAG IV (21:21)
[2025-04-02] VITALS (61 sets, daily range): BP systolic 114–161; BP diastolic 57–85; PULSE 52–88; RESP 16–18; TEMP 36.4–37.3; O2SAT 98–100; BMI 38.3
[2025-04-02] MEDS: Lactated Ringers 1,000 ML 125 ML IV ×2 (04:35→12:48)
[2025-04-02] MEDS: valACYclovir 1,000 MG TAB 1000 MG PO ×3 (04:35→22:35)
[2025-04-02] MEDS: Prenatal Multivitamin w/CA,FE TAB 1 TAB PO (08:23)
[2025-04-02] MEDS: predniSONE 20 MG TAB 60 MG PO (08:23)
--- NOTE | 2025-04-02 09:56 | W.PM.OBNL1 ---
Date of service: 04/02/25 Time of Service: 09:57 Informed Consent Informed Consent: Risk,Benefits,Alternatives Discussed Pelvic Exam Dilation: 3 Effacement (%): 50 station: -3 Cervix Position: mid Consistency: medium Fetus A Heart Rate Baseline: 145 Variability: Moderate (6-25 BPM) Categories: Category I Accelerations: 15 X 15 Decelerations: None Amniotic Membrane Status: Ruptured Rupture Method: Artifical Amniotic Fluid: Clear Date of Membrane Rupture: 04/02/25 Time of Membrane Rupture: 09:45 Assessment and Plan Assessment and plan (1) : Status: Acute Assessment and plan: P0 @39wks undergoing induction of labor for suspected GHTN. On pitocin. Underwent AROM with clear fluid. Cat 1 FHT. Will continue pitocin and encourage ambulation. Objective Temp Pulse Resp BP 97.5 F L 78 16 120/76 04/02/25 07:04 04/02/25 09:31 04/02/25 07:04 04/02/25 09:31 Laboratory Results WBC 13.95 10^3/uL (4.4-10.8) H 03/31/25 23:23 RBC 3.84 10^6/uL (3.93-5.22) L 03/31/25 23:23 Hgb 11.2 g/dL (11.2-15.7) 03/31/25 23:23 Hct 34.4 % (36.0-46.0) L 03/31/25 23:23 MCV 90 fL (80-95) 03/31/25 23:23 MCH 29.2 pg (27.0-33.0) 03/31/25 23:23 MCHC 32.6 % (32.0-36.0) 03/31/25 23:23 RDW 14.4 % (11.7-14.6) 03/31/25 23:23 Plt Count 188 10^3/uL (130-400) 03/31/25 23:23 MPV 12.7 fL (8.0-11.0) H 03/31/25 23:23 Sodium 140 mmol/L (136-145) 03/31/25 23:23 Potassium 4.0 mmol/L (3.5-5.1) 03/31/25 23:23 Chloride 109 mmol/L (98-107) H 03/31/25 23:23 Carbon Dioxide 21.4 mmol/L (21.0-32.0) 03/31/25 23:23 Anion Gap 9.6 mmol/L (3-11) 03/31/25 23:23 BUN 14 mg/dL (7-18) 03/31/25 23:23 Creatinine 0.6 mg/dL (0.55-1.02) 03/31/25 23:23 Est GFR (CKD-EPI 2020) 130.88 (mL/min/1.73m2) 03/31/25 23:23 Glucose 100 mg/dL (74-106) 03/31/25 23:23 Calcium 9.4 mg/dL (8.5-10.1) 03/31/25 23:23 Total Bilirubin 0.2 mg/dL (0.2-1.0) 03/31/25 23:23 AST 21 U/L (15-37) 03/31/25 23:23 ALT 42 U/L (14-59) 03/31/25 23:23 Alkaline Phosphatase 167 U/L (46-116) H 03/31/25 23:23 Total Protein 5.8 g/dL (6.4-8.2) L 03/31/25 23:23 Albumin 2.4 g/dL (3.4-5.0) L 03/31/25 23:23 Ur Random Creatinine 17.87 mg/dL 04/01/25 00:04 U Random Total Protein 14.8 mg/dL 04/01/25 00:04 U [place] Prot/Creat Ratio 0.82 04/01/25 00:04 ABO/Rh O Positive 03/31/25 23:23 Antibody Screen NEGATIVE 03/31/25 23:23 Vital Signs Reviewed: Yes Subjective Interval history since last seen: Bruce balloon removed around 7am. Pitocin continued, now at 12U. Pt is feeling cramping but not too uncomfortable. Results Hemoglobin/Hematocrit: Hgb 11.2 g/dL (11.2-15.7) 03/31/25 23:23 Hct 34.4 % (36.0-46.0) L 03/31/25 23:23 Abnormal Lab Findings: Abnormal Labs 03/31/25 23:23 WBC 13.95 H RBC 3.84 L Hct 34.4 L MPV 12.7 H Chloride 109 H Alkaline Phosphatase 167 H Total Protein 5.8 L Albumin 2.4 L
[2025-04-02] MEDS: Ondansetron O.D.T. 4 MG TABEF PO (10:15)
--- NOTE | 2025-04-02 11:20 | W.ANESPRE ---
General Info Date of Service Date Performed: 04/02/25 Height: 5 ft Weight: 89.04 kg Body Mass Index (BMI): 38.3 Meds Allergies and Home Medications Allergies Allergy/AdvReac Type Severity Reaction Status Date / Time No Known Allergies Allergy Verified 04/02/25 07:44 Home Medication ?Medication ?Instructions ?Recorded prednisone 20 mg tablet 60 mg (3 x 20 mg) PO DAILY 6 days 03/30/25 #18 tabs vit no.95-ferrous 1 tab PO DAILY 03/30/25 fumarate 28 mg-folic acid 800 mcg tablet () valacyclovir 1 gram tablet 1,000 mg PO TID 1 week #21 tabs 03/30/25 Current Visit Medications: Current Medications Generic Name Dose Route Start Last Admin Trade Name Freq PRN Reason Stop Dose Admin Acetaminophen 650 mg 03/31/25 23:32 04/01/25 08:29 Acetaminophen 325 Mg Tab PO 650 mg Q6H PRN PRN Administration Budesonide/Formoterol Fumarate 1 puff 04/01/25 20:00 04/02/25 10:34 Budesonide/Formoterol 80/4.5 6.9 Gm 60 Puff Inh IH Not Given BID JAUN Ringer's Solution 1,000 mls @ 200 mls/hr 04/01/25 09:30 04/02/25 04:35 IV 125 mls/hr INFUSION JAUN Administration Oxytocin/Sodium Chloride 30 units in 500 mls @ 0 mls/hr 04/01/25 20:00 04/02/25 08:45 Pitocin/Normal Saline IV 12 mls/hr INFUSION JAUN 12 mls/hr Protocol Titration Per Protocol IV Miscellaneous Supplies 1 each 04/01/25 09:30 Iv Access IV DIRECTED JAUN Ondansetron HCl 4 mg 04/01/25 16:52 04/02/25 10:15 Ondansetron O.D.T. 4 Mg Tabef PO 4 mg Q6H PRN PRN Administration Nausea / Vomiting Prednisone 60 mg 04/01/25 08:30 04/02/25 08:23 Prednisone 20 Mg Tab PO 60 mg DAILY JAUN Administration Multivitamins 1 tab 04/01/25 08:30 04/02/25 08:23 Multivitamin W/Ca,Fe Tab PO 1 tab DAILY JAUN Administration Sodium Chloride 0 ml 04/01/25 09:19 Normal Saline Flush 10 Ml Syr IVP PRN PRN Sodium Chloride 0 ml 04/01/25 20:00 04/02/25 10:34 Normal Saline Flush 10 Ml Syr IVP Not Given BID JAUN Sodium Chloride 0 ml 04/01/25 09:19 Normal Saline 10 Ml Vial IJ DIRECTED PRN Terbutaline Sulfate 0.25 mg 04/01/25 09:19 Terbutaline 1 Mg/Ml Vial SC PRN PRN Valacyclovir HCl 1,000 mg 04/02/25 04:00 04/02/25 04:35 Valacyclovir 1,000 Mg Tab PO 1,000 mg TID@0400,1200,2000 [facility] Administration PFSH Active Problems Active Problems: Problem Status Onset Code Proteinuria Acute R80.9 Asthma Chronic J45.909 Maternal varicella, non-immune Acute Z34.90, Z28.39 Excessive weight gain during Acute O26.00 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 Tobacco Smoking/Tobacco Use Status: Never Alcohol Alcohol Intake: never Substance Use Substance use: Never Substance use type: does not use Prental History History 1 Para 0 Hx # Term Pregnancies Multiple births Hx # Pregnancies Ectopic pregnancies AB induced Hx Number of Living Children AB spontaneous Vital Signs and Lab Results Vital Signs Most Recent Vital Signs in EMR: Most Recent Vital Signs Temp Pulse Resp BP 36.4 C L 78 16 120/76 04/02/25 07:04 04/02/25 09:31 04/02/25 07:04 04/02/25 09:31 Lab Results 03/31/25 23:23 03/31/25 23:23 Blood Type / Crossmatch: Antibody Screen NEGATIVE 03/31/25 Complete Blood Count: WBC, (4.4-10.8) 13.95 10^3/uL H 03/31/25, 23:23 RBC, (3.93-5.22) 3.84 10^6/uL L 03/31/25, 23:23 Hgb, (11.2-15.7) 11.2 g/dL 03/31/25, 23:23 Hct, (36.0-46.0) 34.4 % L 03/31/25, 23:23 Plt Count, (130-400) 188 10^3/uL 03/31/25, 23:23 Complete Metabolic Panel: Sodium, (136-145) 140 mmol/L 03/31/25, 23:23 Potassium, (3.5-5.1) 4.0 mmol/L 03/31/25, 23:23 Chloride, (98-107) 109 mmol/L H 03/31/25, 23:23 Carbon Dioxide, (21.0-32.0) 21.4 mmol/L 03/31/25, 23:23 BUN, (7-18) 14 mg/dL 03/31/25, 23:23 Creatinine, (0.55-1.02) 0.6 mg/dL 03/31/25, 23:23 Est GFR (CKD-EPI 2020), (mL/min/1.73m2) 130.88 03/31/25, 23:23 Magnesium, (1.8-2.4) 1.7 mg/dL L 03/30/25, 15:48 Calcium, (8.5-10.1) 9.4 mg/dL 03/31/25, 23:23 Albumin, (3.4-5.0) 2.4 g/dL L 03/31/25, 23:23 Glucose, (74-106) 100 mg/dL 03/31/25, 23:23 Liver Function Panel: ALT, (14-59) 42 U/L 03/31/25, 23:23 AST, (15-37) 21 U/L 03/31/25, 23:23 Coagulation Panel: INR, (0.9-1.1) 1.0 03/30/25, 15:48 PT, (9.1-11.1) 10.1 sec 03/30/25, 15:48 Imaging and Studies Imaging and Studies Study information below may be from another EMR and interpreted by another provider. Please see original notes in EMR for more complete details. EKG Summary: 03/30/25 Conclusion Sinus rhythm, rate 78 No interval abnormalities No STEMI T wave inversion III, V1, V2 No priors available for comparison Anesthesia Assessment and Plan Anesthesia History Personal History: No History of Anesthesia Complications Family History: No Family History of Anesthesia Complications Exercise Tolerance Exercise Tolerance: Metabolic Equivalents>4 Pertinent Negatives Pertinent Negatives: No Major Cardiovascular Symptoms or Complaints and No Major Pulmonary Symptoms or Complaints Cardiac & Pulmonary Exam Cardiac Exam: Normal S1/S2 Heart Sounds Pulmonary Exam: Clear Bilateral Breath Sounds Implantable Cardiac Device Does patient have a Pacemaker or an ICD?: No Airway Exam Known Difficult Airway: No Mallampati Class: 2 Mouth Opening: Normal (> 3cm) Thyromental Distance: Greater than 3 cm Neck Range of Motion: Full ROM Neck Circumference: Normal Teeth Condition: Normal Dentition ASA Classification ASA Score: ASA 2 Emergency Case?: No NPO Status NPO Status: Full Stomach Status Status: Confirmed Anesthesia Plan Resuscitation Status: Full Code Anesthesia Technique: Labor Epidural Airway Planned: Natural Airway Monitors Used: Standard Monitors Preoperative Comments:: On prednisone for [place] palsy
[2025-04-02] MEDS: FentaNYL/ROPIvacaine 2 mcg/ml and 0.1% 200 ML CADD Cassette EP (11:52)
--- NOTE | 2025-04-02 11:59 | W.ANESNEU ---
Epidural/Spinal Catheter Date Performed: 04/02/25 Procedure Start: 11:40 Procedure Stop: 12:01 Requesting Provider: Morelia Lafleur Procedure Location: Obstetrics Reason Performed: Labor Epidural Standard Monitors Applied: Blood Pressure, SpO2 and See EMR for corresponding vital signs Patient Position: Sitting Sedation Given (Indicate Dose Given): No Sedation given Patient Mental Status: Awake Sterility: Hand Hygiene, Surgical Cap, Surgical Mask, Sterile Gloves, Sterile Drape/Sheet and Chlorhexidine Procedure Location: L3-L4 Interspace Epidural Needle: Tuohy 18 Gauge Needle Length: 3.5 Inch Needle Approach: Midline Epidural Procedure: Skin Prepped, Sterile Drape Placed, 1% Lidocaine to skin and subcutaneous tissue with 25G needle, Tuohy Needle placed, ED to Saline Used, Epidural Catheter Placed, Negative Heme, Negative CSF Flow and Tuohy Needle Removed Catheter Placed?: Catheter Placed Test Dose (Indicate Dose Given): 3ml 1.5% Lidocaine with 1:200K Epinephrine Given and Negative Test Dose Loss of Resistance Depth (cm): 7 Catheter depth at skin (cm): 13 Dressing: [place] Dressing Placed and Mastisol Used Epidural Provider Bolus (Indicate Dose Given): Total bolus dose given in 3-5 ml divided doses and Total Ropivacaine 0.1% with Fentanyl 2mcg/ml Given from pump. (ml) Dose:: 5ml + 3ml =8 mL total Additives (Indicate Dose Given ): None Infusion Medication: Medication Infusion Began Medication Infusion: Ropivacaine 0.1% with Fentanyl 2mcg/ml Maintenance Infusion Rate (ml/hour): 10 PCEA Bolus Dose (ml): 5 Post Procedure Pain score (0-10): 0 Block Level: N/A Paresthesia: Left (needle redirected) Paresthesia Duration: Transient Ultrasound: Not Used Number of Attempts (See previous attempts in note section): 1 Procedure Tolerated: No Complications and Patient tolerated well Procedure Outcome: Successful Performed By: Katie Partida
--- NOTE | 2025-04-02 14:46 | W.PM.OBNL1 ---
Date of service: 04/02/25 Time of Service: 14:46 Informed Consent Informed Consent: Risk,Benefits,Alternatives Discussed Pelvic Exam Dilation: 9.5 Effacement (%): 95 station: +2 Fetus A Heart Rate Baseline: 145 Presentation: Vertex Variability: Moderate (6-25 BPM) Categories: Category I Accelerations: 15 X 15 Decelerations: None and Variable (intermittent) Assessment and Plan Assessment and plan (1) : Status: Acute Assessment and plan: Pt AL but feels need to push. Cervix persisted despite reducing during pushes. Will try to rest a little bit and then resume pushing. Cat 1 FHT. Stage 2 huddle done. Objective Temp Pulse Resp BP Pulse Ox 97.9 F 63 18 127/82 98 04/02/25 14:42 04/02/25 14:39 04/02/25 14:40 04/02/25 14:39 04/02/25 12:18 Laboratory Results WBC 13.95 10^3/uL (4.4-10.8) H 03/31/25 23:23 RBC 3.84 10^6/uL (3.93-5.22) L 03/31/25 23:23 Hgb 11.2 g/dL (11.2-15.7) 03/31/25 23:23 Hct 34.4 % (36.0-46.0) L 03/31/25 23:23 MCV 90 fL (80-95) 03/31/25 23:23 MCH 29.2 pg (27.0-33.0) 03/31/25 23:23 MCHC 32.6 % (32.0-36.0) 03/31/25 23:23 RDW 14.4 % (11.7-14.6) 03/31/25 23:23 Plt Count 188 10^3/uL (130-400) 03/31/25 23:23 MPV 12.7 fL (8.0-11.0) H 03/31/25 23:23 Sodium 140 mmol/L (136-145) 03/31/25 23:23 Potassium 4.0 mmol/L (3.5-5.1) 03/31/25 23:23 Chloride 109 mmol/L (98-107) H 03/31/25 23:23 Carbon Dioxide 21.4 mmol/L (21.0-32.0) 03/31/25 23:23 Anion Gap 9.6 mmol/L (3-11) 03/31/25 23:23 BUN 14 mg/dL (7-18) 03/31/25 23:23 Creatinine 0.6 mg/dL (0.55-1.02) 03/31/25 23:23 Est GFR (CKD-EPI 2020) 130.88 (mL/min/1.73m2) 03/31/25 23:23 Glucose 100 mg/dL (74-106) 03/31/25 23:23 Calcium 9.4 mg/dL (8.5-10.1) 03/31/25 23:23 Total Bilirubin 0.2 mg/dL (0.2-1.0) 03/31/25 23:23 AST 21 U/L (15-37) 03/31/25 23:23 ALT 42 U/L (14-59) 03/31/25 23:23 Alkaline Phosphatase 167 U/L (46-116) H 03/31/25 23:23 Total Protein 5.8 g/dL (6.4-8.2) L 03/31/25 23:23 Albumin 2.4 g/dL (3.4-5.0) L 03/31/25 23:23 Ur Random Creatinine 17.87 mg/dL 04/01/25 00:04 U Random Total Protein 14.8 mg/dL 04/01/25 00:04 U [place] Prot/Creat Ratio 0.82 04/01/25 00:04 ABO/Rh O Positive 03/31/25 23:23 Antibody Screen NEGATIVE 03/31/25 23:23 Vital Signs Reviewed: Yes Objective Narrative Objective Narrative: Tried pushing with patient and anterior lip reduced during pushing but not in between. Subjective Interval history since last seen: Pt received an epidural with good relief from pain. She then started to feel pelvic pressure and was checked by the nurse and was 7cm. About 20min later she felt as if she couldn't stop from pushing and she was checked and was AL. Results Hemoglobin/Hematocrit: Hgb 11.2 g/dL (11.2-15.7) 03/31/25 23:23 Hct 34.4 % (36.0-46.0) L 03/31/25 23:23 Abnormal Lab Findings: Abnormal Labs 03/31/25 23:23 WBC 13.95 H RBC 3.84 L Hct 34.4 L MPV 12.7 H Chloride 109 H Alkaline Phosphatase 167 H Total Protein 5.8 L Albumin 2.4 L
--- NOTE | 2025-04-02 16:37 | W.PM.OBNL1 ---
Date of service: 04/02/25 Time of Service: 04:15 Informed Consent Informed Consent: Risk,Benefits,Alternatives Discussed Pelvic Exam station: +2 Fetus A Heart Rate Baseline: 145 Presentation: Vertex Variability: Moderate (6-25 BPM) Categories: Category II Accelerations: 15 X 15 Decelerations: Early and Variable (occasional, small) Assessment and Plan Assessment and plan (1) : Status: Acute Assessment and plan: P0 @ 39wks undergoing induction of labor for suspected PEC. She has been pushing just over an hour. status remains reassuring. Will continue pushing. Objective Temp Pulse Resp BP Pulse Ox 97.7 F 71 18 117/60 98 04/02/25 16:12 04/02/25 15:56 04/02/25 16:25 04/02/25 15:56 04/02/25 12:18 Laboratory Results WBC 13.95 10^3/uL (4.4-10.8) H 03/31/25 23:23 RBC 3.84 10^6/uL (3.93-5.22) L 03/31/25 23:23 Hgb 11.2 g/dL (11.2-15.7) 03/31/25 23:23 Hct 34.4 % (36.0-46.0) L 03/31/25 23:23 MCV 90 fL (80-95) 03/31/25 23:23 MCH 29.2 pg (27.0-33.0) 03/31/25 23:23 MCHC 32.6 % (32.0-36.0) 03/31/25 23:23 RDW 14.4 % (11.7-14.6) 03/31/25 23:23 Plt Count 188 10^3/uL (130-400) 03/31/25 23:23 MPV 12.7 fL (8.0-11.0) H 03/31/25 23:23 Sodium 140 mmol/L (136-145) 03/31/25 23:23 Potassium 4.0 mmol/L (3.5-5.1) 03/31/25 23:23 Chloride 109 mmol/L (98-107) H 03/31/25 23:23 Carbon Dioxide 21.4 mmol/L (21.0-32.0) 03/31/25 23:23 Anion Gap 9.6 mmol/L (3-11) 03/31/25 23:23 BUN 14 mg/dL (7-18) 03/31/25 23:23 Creatinine 0.6 mg/dL (0.55-1.02) 03/31/25 23:23 Est GFR (CKD-EPI 2020) 130.88 (mL/min/1.73m2) 03/31/25 23:23 Glucose 100 mg/dL (74-106) 03/31/25 23:23 Calcium 9.4 mg/dL (8.5-10.1) 03/31/25 23:23 Total Bilirubin 0.2 mg/dL (0.2-1.0) 03/31/25 23:23 AST 21 U/L (15-37) 03/31/25 23:23 ALT 42 U/L (14-59) 03/31/25 23:23 Alkaline Phosphatase 167 U/L (46-116) H 03/31/25 23:23 Total Protein 5.8 g/dL (6.4-8.2) L 03/31/25 23:23 Albumin 2.4 g/dL (3.4-5.0) L 03/31/25 23:23 Ur Random Creatinine 17.87 mg/dL 04/01/25 00:04 U Random Total Protein 14.8 mg/dL 04/01/25 00:04 U [place] Prot/Creat Ratio 0.82 04/01/25 00:04 ABO/Rh O Positive 03/31/25 23:23 Antibody Screen NEGATIVE 03/31/25 23:23 Subjective Interval history since last seen: Pt has been pushing just over an hour in various positions. She is tolerating it well. Results Hemoglobin/Hematocrit: Hgb 11.2 g/dL (11.2-15.7) 03/31/25 23:23 Hct 34.4 % (36.0-46.0) L 03/31/25 23:23 Abnormal Lab Findings: Abnormal Labs 03/31/25 23:23 WBC 13.95 H RBC 3.84 L Hct 34.4 L MPV 12.7 H Chloride 109 H Alkaline Phosphatase 167 H Total Protein 5.8 L Albumin 2.4 L
[2025-04-02] MEDS: Lactated Ringers 1,000 ML 500 ML IV (18:06)
--- NOTE | 2025-04-02 18:37 | PGE_ITS ---
Date of service: 04/02/25 Time of Service: 18:37 Informed Consent Informed Consent: Risk,Benefits,Alternatives Discussed Pelvic Exam station: +3 Fetus A Heart Rate Baseline: 130 Presentation: Vertex Variability: Moderate (6-25 BPM) Categories: Category II Accelerations: 15 X 15 Decelerations: Early and Variable Assessment and Plan Assessment and plan (1) : Status: Acute Assessment and plan: G0 @39wks undergoing induction for suspected PEC without severe features. Pushing x35hrs. Still has good effort and FHT Cat 2, making slow progress. +3 station now. Objective Temp Pulse Resp BP Pulse Ox 98.2 F 78 18 134/74 98 04/02/25 17:55 04/02/25 18:36 04/02/25 17:30 04/02/25 17:55 04/02/25 12:18 Laboratory Results WBC 13.95 10^3/uL (4.4-10.8) H 03/31/25 23:23 RBC 3.84 10^6/uL (3.93-5.22) L 03/31/25 23:23 Hgb 11.2 g/dL (11.2-15.7) 03/31/25 23:23 Hct 34.4 % (36.0-46.0) L 03/31/25 23:23 MCV 90 fL (80-95) 03/31/25 23:23 MCH 29.2 pg (27.0-33.0) 03/31/25 23:23 MCHC 32.6 % (32.0-36.0) 03/31/25 23:23 RDW 14.4 % (11.7-14.6) 03/31/25 23:23 Plt Count 188 10^3/uL (130-400) 03/31/25 23:23 MPV 12.7 fL (8.0-11.0) H 03/31/25 23:23 Sodium 140 mmol/L (136-145) 03/31/25 23:23 Potassium 4.0 mmol/L (3.5-5.1) 03/31/25 23:23 Chloride 109 mmol/L (98-107) H 03/31/25 23:23 Carbon Dioxide 21.4 mmol/L (21.0-32.0) 03/31/25 23:23 Anion Gap 9.6 mmol/L (3-11) 03/31/25 23:23 BUN 14 mg/dL (7-18) 03/31/25 23:23 Creatinine 0.6 mg/dL (0.55-1.02) 03/31/25 23:23 Est GFR (CKD-EPI 2020) 130.88 (mL/min/1.73m2) 03/31/25 23:23 Glucose 100 mg/dL (74-106) 03/31/25 23:23 Calcium 9.4 mg/dL (8.5-10.1) 03/31/25 23:23 Total Bilirubin 0.2 mg/dL (0.2-1.0) 03/31/25 23:23 AST 21 U/L (15-37) 03/31/25 23:23 ALT 42 U/L (14-59) 03/31/25 23:23 Alkaline Phosphatase 167 U/L (46-116) H 03/31/25 23:23 Total Protein 5.8 g/dL (6.4-8.2) L 03/31/25 23:23 Albumin 2.4 g/dL (3.4-5.0) L 03/31/25 23:23 Ur Random Creatinine 17.87 mg/dL 04/01/25 00:04 U Random Total Protein 14.8 mg/dL 04/01/25 00:04 U [place] Prot/Creat Ratio 0.82 04/01/25 00:04 ABO/Rh O Positive 03/31/25 23:23 Antibody Screen NEGATIVE 03/31/25 23:23 Vital Signs Reviewed: Yes Subjective Interval history since last seen: Pt pushing x3.5hrs. She is feeling tired but still making very good effort. Results Hemoglobin/Hematocrit: Hgb 11.2 g/dL (11.2-15.7) 03/31/25 23:23 Hct 34.4 % (36.0-46.0) L 03/31/25 23:23 Abnormal Lab Findings: Abnormal Labs 03/31/25 23:23 WBC 13.95 H RBC 3.84 L Hct 34.4 L MPV 12.7 H Chloride 109 H Alkaline Phosphatase 167 H Total Protein 5.8 L Albumin 2.4 L
[2025-04-02] MEDS: Lidocaine 1% Multi-Dose 20 ML VIAL (20:30)
--- NOTE | 2025-04-02 21:22 | W.OBDELIVERY ---
Date of service: 04/02/25 Time of Service: 21:23 OB Labor/ Delivery Information Baby A Delivery Delivery Method: Spontaneaous Presentation: Vertex Vertex Position: Right Occipital Anterior Cord Description-Baby A: 3 Vessels Cord Description Comment: Fat cord Estimated Blood Loss: 250 Delivery Outcome: Liveborn Note: The pt felt the urge to push and was 7cm, then 20min later she was 9.5cm. She tried pushing to reduce the cervix but it persisted so she rested a bit. Then she began pushing again and the cervix easily reduced. She pushed almost 5hrs is various positions with slow progress and eventually brought the head to . She then pushed to deliver the infant's head in DEE position followed by the shoulders and the rest of the body. The baby was placed on mom's abdomen. After >1min the cord was clamped x2 and cut. Cord blood collected. The placenta delivered with gentle cord traction and fundal massage and appeared intact. Fundus was firm with good hemostasis. Her perineum was inspected and she was found to have a 3rd degree tear with complete separtion of the internal anal sphincter deeper in the tear and only partial separation of the external anal sphincter. The mucosa was noted to be intact but was very thin. First the internal anal sphincter was reapproximated with 3 interrupted sutures of 3-0 vicryl. The torn fibers of the external anal sphincter were then reapproximated with 3 interrupted sutures of 3-0 vicryl. The rectovaginal septum and vaginal mucosa were then reapproximated with 2-0 vicryl starting at the apex of the tear. This done with a running locked suture to the hymenal ring. The suture was then used to reapproximated the bulbocavernosus muscle and the perineal body. The skin tear extended down to the edge of the anal opening. A 3-0 vicryl was used to reapproximate this starting at the anus and running up the perineum in a subcuticular fashion. This continued to reapproximate the perineum and the left labial mucosa. A rectal exam was done at the end of the repair to confirm adequate reinforcement. Mom and baby stable at time of note. Providers Doctor: Morelia Lafleur Nurse: Sharlene Abdul Labor/Delivery Information Number of Babies in Womb: 1 Steroids Given: None Reason Steroids Not Administered: N/A Group Beta Strep: Negative Antibiotics Administered: No Rubella Status: Immune Blood Type: O+ Varicella Immunity: Nonimmune Shoulder Dystocia: No Stages of Labor Onset of Labor Date: 04/02/25 Onset of Labor Time: 10:00 Complete Dilatation Date: 04/02/25 Complete Dilatation Time: 14:40 Labor - Stage 1 Duration: 4 hours and 40 minutes ROM Baby A: 04/02/25 ROM Baby A: 09:45 ROM Total Time- Baby A: [id number] Delivery Date-Baby A: 04/02/25 Infant Delivery Time-Baby A: 19:52 Labor Stage 2 Duration: 5 hours and 12 minutes Placenta Delivery Date-Baby A: 04/02/25 Placenta Delivery Time-Baby A: 20:15 Labor-Stage 3 Duration: 23 minutes Total Length of Labor-Baby A: 9 hours and 52 minutes Placenta Status: Delivered Baby A Infant Gender: Female Gestational Status: Term (39-41.6 wks) Gestational Age in Weeks/Days: 39 Weeks and 0 Days Score-1 Minute Interval(Baby A) Heart Rate-1 minute: 100 BPM or Greater Respiratory Effort- 1 minute: Spontaneous/Strong Cry Muscle Tone-1 minute: Minimal Flexion/Extension Reflex Response-1 minute: Prompt Response Color-1 minute: Bluish Hands or Feet Total Score-1 minute: 8 Score-5 Minute Interval(Baby A) Heart Rate- 5 minute: 100 BPM or Greater Respiratory Effort-5 minute: Spontaneous/Strong Cry Muscle Tone-5 minute: Active Movement Reflex Response-5 minute: Prompt Response Color-5 minute: Bluish Hands or Feet Total Score- 5 minute: 9
[2025-04-02] MEDS: Docusate Sodium 100 MG CAP PO (22:35)
[2025-04-02] MEDS: Acetaminophen 325 MG TAB 650 MG PO (22:35)
[2025-04-02] MEDS: Hamamelis Leaf/Glycerin 100 EACH BOX PR (22:59)
[2025-04-02] MEDS: Dibucaine 1% 28 GM TUBE TP (22:59)
[2025-04-03] VITALS (7 sets, daily range): BP systolic 103–135; BP diastolic 65–88; PULSE 72–88; RESP 16–18; TEMP 36.7–36.8; O2SAT 99
[2025-04-03] MEDS: cefOXitin 2 GM in Normal Saline 50 ML IVPB
[2025-04-03] MEDS: Ibuprofen 600 MG TAB PO ×3 (00:10→18:19)
[2025-04-03] MEDS: Lactated Ringers 1,000 ML 75 ML IV (01:00)
[2025-04-03] MEDS: Acetaminophen 325 MG TAB 650 MG PO ×2 (04:45→14:41)
[2025-04-03] MEDS: valACYclovir 1,000 MG TAB 1000 MG PO ×2 (04:46→14:41)
--- NOTE | 2025-04-03 08:19 | W.ANESPOSTOP ---
Postoperative Evaluation Date, Time and Location Date Performed: 04/03/25 Time Performed: 08:15 Patient Location: Obstetrics Vital Signs Most Recent Imported Vital Signs: Most Recent Vital Signs Temp Pulse Resp BP Pulse Ox 37 C 75 17 135/80 99 04/02/25 23:00 04/03/25 00:00 04/03/25 01:30 04/03/25 00:00 04/02/25 20:16 Pain Score Most Recent Pain Score: Most Recent Pain Score Pain Level 0 04/02/25 21:30 Assessment Mental Status: Awake (Alert & Oriented to Patient Baseline) Airway and Respiratory Function: Patent airway with normal (patient baseline) respiratory exam Cardiovascular Function: Hemodynamically Stable Hydration Status: Adequately Hydrated Nausea & Vomiting: No Nausea or Vomiting Pain: Pt. Denies Any Pain Peripheral Nerve Block: Patient did not receive a nerve block
[2025-04-03] MEDS: predniSONE 20 MG TAB 60 MG PO (08:38)
[2025-04-03] MEDS: Prenatal Multivitamin w/CA,FE TAB 1 TAB PO (08:38)
[2025-04-03] MEDS: Docusate Sodium 100 MG CAP PO (12:26)
--- NOTE | 2025-04-03 15:48 | W.PM.OBPNV1 ---
Date of service: 04/03/25 Time of Service: 13:00 Assessment and Plan Assessment and plan (1) Perineal laceration with delivery, third degree: Status: Acute Assessment and plan: Pt seems to be doing well, no issues with first BM. We reviewed the importance of keeping BMs soft to allow the tissues to heal. We also discussed previously that the tear was very close to a 4th degree laceration and given the extent of the tear and the length of pushing, she would be a candidate for primary section with a subsequent if desired. Anticipate D/C to home tomorrow. Subjective Subjective Narrative: Pt reports she got some rest. Her pain is well controlled. She feels tired but doing well over all. Minimal bleeding. Baby is nursing and doing well. She had her first BM and it wasn't painful. Exam Physical Exam Vital signs: Temp Pulse Resp BP Pulse Ox 98.2 F 82 18 130/88 99 04/03/25 08:40 04/03/25 12:40 04/03/25 12:40 04/03/25 12:40 04/02/25 20:16 Vital Signs Reviewed: Yes Constitutional Constitutional: no acute distress and cooperative Detailed HEENT Exam Head: Present normocephalic and atraumatic Respiratory Exam Respiratory Exam: Normal Abdominal Exam Abdomen: Tender (mildly) Fundal Exam Fundus: Below Umbilicus and Firm Extremities Exam Extremity Exam: negative Calf Tenderness or Edema Detailed Neurological Exam Neurological: Present alert, oriented X3 and CN II-XII intact Results Hemoglobin/Hematocrit: Hgb 11.2 g/dL (11.2-15.7) 03/31/25 23:23 Hct 34.4 % (36.0-46.0) L 03/31/25 23:23 Abnormal Lab Findings: Abnormal Labs 03/31/25 23:23 WBC 13.95 H RBC 3.84 L Hct 34.4 L MPV 12.7 H Chloride 109 H Alkaline Phosphatase 167 H Total Protein 5.8 L Albumin 2.4 L
[2025-04-04] MEDS: Ibuprofen 600 MG TAB PO ×2 (04:52→10:40)
[2025-04-04] MEDS: valACYclovir 1,000 MG TAB 1000 MG PO (04:52)
[2025-04-04] MEDS: Docusate Sodium 100 MG CAP PO (04:53)
--- NOTE | 2025-04-04 07:16 | OBPPV_ITS ---
Date of service: 04/04/25 Time of Service: 07:17 Assessment and Plan Assessment and plan (1) (normal spontaneous vaginal delivery): Status: Acute Assessment and plan: day #2 status post vaginal after labor induction due to proteinuria, mildly elevated blood pressure, new onset Martinez's palsy. Patient had a labor induction and vaginal . She had a 5-hour second stage. She had a third-degree perineal laceration which was repaired. She will discharge home today and follow-up with her primary providers at [facility] in 1, 2, and 6 weeks (2) Perineal laceration with delivery, third degree: Status: Acute Assessment and plan: Stool softeners at home (3) Martinez's palsy: Status: Acute Assessment and plan: Continue current regime Subjective Subjective Interval history: Patient seen and examined this morning. She states that she is tired and appropriately sore. She has been ambulatory. She is eating regular diet. She has had a bowel movement. Patient comments: Pain well controlled and Bowel Movement baby status: Doing well and Strong Bonding Observed Exam Physical Exam Vital signs: Temp Pulse Resp BP Pulse Ox 98.0 F 72 18 103/65 99 04/03/25 21:30 04/03/25 21:30 04/03/25 21:30 04/03/25 21:30 04/03/25 21:30 Vital Signs Reviewed: Yes Constitutional Constitutional: no acute distress HEENT Exam HEENT Exam: Normal Neck Exam Neck Exam: Normal Respiratory Exam Respiratory Exam: Normal Cardiovascular Exam Cardiovascular Exam: Normal Abdominal Exam Comments: Soft, nontender Fundal Exam Fundus: Below Umbilicus and Firm Extremities Exam Extremity Exam: Normal and Edema (1+ bilateral); negative Calf Tenderness Neurological Exam Neurological Exam: Normal Psychiatric Exam Psychiatric Exam: Normal Results Hemoglobin/Hematocrit: Hgb 11.2 g/dL (11.2-15.7) 03/31/25 23:23 Hct 34.4 % (36.0-46.0) L 03/31/25 23:23 Abnormal Lab Findings: Abnormal Labs 03/31/25 23:23 WBC 13.95 H RBC 3.84 L Hct 34.4 L MPV 12.7 H Chloride 109 H Alkaline Phosphatase 167 H Total Protein 5.8 L Albumin 2.4 L
--- NOTE | 2025-04-04 07:23 | W.PM.OBDISCH ---
Date of service: 04/04/25 Time of Service: 07:23 DS: Diagnosis Discharge Diagnosis (1) (normal spontaneous vaginal delivery): Status: Acute Asessment and Plan: anemia 2 status post vaginal after labor induction with misoprostol, followed by Cook catheter, followed by artificial rupture of membranes and Pitocin augmentation. 5-hour second stage was to third-degree. The laceration. Uncomplicated care. Discharge to home day #2 status post vaginal , ambulating, tolerating regular diet and oral pain medication with stable vital signs. Appropriate bowel movements. Follow-up with primary care providers in 1, 2, 6 weeks. (2) Perineal laceration with delivery, third degree: Status: Acute Asessment and Plan: Stool softeners as needed (3) Martinez's palsy: Status: Acute Asessment and Plan: Continue current medication Discharge Plan Disposition Patient Disposition: Home Condition: Good Discharge Details Reason For Visit: Gestational Hypertension Admit Date/Time: 04/01/25 09:19 Admit Provider: Maria G Pringle Attending Provider: Maria G Pringle Primary Care Provider: CRISTINA SAUL Hospital Course Hospital Course: Patient was seen by her primary care providers with new onset Martinez's palsy. She also was noted to have intermittently mildly elevated blood pressures and increasing proteinuria. For this reason, decision was made for labor induction at term. She initially had cervical ripening with misoprostol, followed by a Cook catheter with post Pitocin augmentation. She had artificial rupture of membranes and went on to the point that she was completely dilated with appropriate epidural analgesia. She had a 5-hour second stage of labor and 1/3 degree perineal laceration which was repaired by the delivering provider. In her course, she had no complexity. Vital signs remained stable. She was ambulatory, tolerating regular diet normal pain medication with stable vital signs and appropriate bowel movements. She will be seen by her primary care providers at [facility] in 1, 2, and 6 weeks. Home Meds and New Rx's Prescriptions: New ibuprofen 600 mg tablet 600 mg PO Q6H PRNQty: 60 0RF docusate sodium [Colace] 100 mg capsule 100 mg PO BID Qty: 30 0RF No Action PNV no.95-ferrous fumarate-FA [] 28 mg iron- 800 mcg tablet 1 tab PO DAILY prednisone 20 mg tablet 60 mg PO DAILY 6 Days Qty: 18 0RF Rx Instructions: start 03/31/2025 valacyclovir 1 gram tablet 1,000 mg PO TID 7 Days Qty: 21 0RF Discharge Instructions Additional Instructions: Follow-up with [facility] in 1, 2, 6 weeks Activity:: Pelvic rest Equipment/Supplies:: No Equipment Needed Diet:: As Tolerated Discharge Orders Discharge Orders: Discharge Order (Routine); Ordered 04/04/25 Ordered By: Olive Colon OB:DS Summary Summary Vaginal Delivery Method: Spontaneaous Contraception Discussed Contraception Discussed: No, Infant Gender-Baby A: Female weight: 8 lb 4.277 oz Status at Discharge Functional status at discharge: independent ambulation Overall status at discharge: patient is progressing back to baseline Mental Status: mental status grossly normal Speech and Movement: speech and movement normal Mood: congruent mood Affect: normal affect Exam Physical Exam Vital signs: Temp Pulse Resp BP Pulse Ox 98.0 F 72 18 103/65 99 04/03/25 21:30 04/03/25 21:30 04/03/25 21:30 04/03/25 21:30 04/03/25 21:30 Constitutional Comments: See physical exam from progress note dated 04/04/2025. PFSH All Active Problems (Updated 04/04/25 @ 07:18 by Olive Colon DO) (normal spontaneous vaginal delivery) (Acute) Perineal laceration with delivery, third degree (Acute) Proteinuria (Acute) Asthma (Chronic) Maternal varicella, non-immune (Acute) Excessive weight gain during (Acute) (Acute) Martinez's palsy (Acute) Social History Smoking/Tobacco Use Status: Never Smoking risk assessment performed?: Yes Alcohol Intake: never Drug use: Never Substance use type: does not use Do you feel safe at home: Yes Do you feel safe in your relationship?: Yes History History 1 Para 0 Hx # Term Pregnancies Multiple births Hx # Pregnancies Ectopic pregnancies AB induced Hx Number of Living Children AB spontaneous DS: Data Vitals/I&O Vitals and I&O: Vital Signs Temperature 98.0 F 04/03/25 21:30 Temperature Source Oral 04/03/25 21:30 Pulse 72 04/03/25 21:30 Pulse Rhythm Regular 07/29/25 21:30 Respiratory Rate 18 04/03/25 21:30 Respiratory Depth Normal 04/03/25 21:30 Blood Pressure 103/65 04/03/25 21:30 Blood Pressure Mean 77 04/03/25 21:30 Pulse Oximetry 99 04/03/25 21:30 Oxygen Delivery Method Room Air 03/31/25 23:11 Oxygen Flow Rate 0 03/31/25 23:11 Pain Level 2 04/03/25 18:19 Comment temp deferred as pt eating dinner 04/03/25 17:41 Intake & Output 04/03/25 04/03/25 04/04/25 11:59 23:59 11:59 Intake Total 131.25 / 131.25 Output Total 800 / 1900 1100 / 1900 Balance -668.75 / -1768.75 -1100 / -1768.75 Intake: IV 131.25 / 131.25 Output: Urine 800 / 1900 1100 / 1900 Other: Urine Color Yellow Yellow Del Real Del Real Urine Appearance Clear
[2025-04-04 07:45] VITALS: BP 117/66; PULSE 76; RESP 18; TEMP 36.7
[2025-04-04] MEDS: predniSONE 20 MG TAB 60 MG PO (09:37)
[2025-04-04] MEDS: Prenatal Multivitamin w/CA,FE TAB 1 TAB PO (09:37)
[2025-04-04] MEDS: Dibucaine 1% 28 GM TUBE TP (10:39)
[2025-04-04] MEDS: Hamamelis Leaf/Glycerin 100 EACH BOX PR (10:39)
== END 2025-04-04 11:05 | disposition home or self-care (01) | DRG 768 ==
PROVIDERS: Admitting Provider Obstetrics & Gynecology; PCP Nurse Practitioner Family; Visit Provider Obstetrics & Gynecology
DX: O14.04 Mild to moderate pre-eclampsia, complicating childbirth (principal); Z37.0 Single live birth; O99.354 Diseases of the nervous system complicating childbirth; O26.03 Excessive weight gain in pregnancy, third trimester; G51.0 Bell's palsy; O70.20 Third degree perineal laceration during delivery, unspecified; Z3A.39 39 weeks gestation of pregnancy; O99.52 Diseases of the respiratory system complicating childbirth; J45.30 Mild persistent asthma, uncomplicated; Z28.39 Other underimmunization status; O90.81 Anemia of the puerperium; D64.9 Anemia, unspecified
CPT/HCPCS: 59200; 36415; 80053; 85027; 86850; 86900; 86901; 82565; 84156; G0378; J2003; J3490; J7512